=== PATIENT | female | born 1935 | race African-American/Black ===

== ENCOUNTER → 2016-09-20 | Outpatient (CLI) | payer MEDICARE ==
[~2016-09-20] MED LIST: ASPIRIN81 M2 PO; ASPIRINEC; BACLOFEN10 MG PO; FERRO-TIME325 MG PO; HCTZ; HYDROCHLOROTHIA25 MG PO; LOSARTAN POTASS50 MG PO; METFORMIN PO; METOPROLOL SUC100 MG PO; NAPROXEN; NITROLINGUAL; STOOL SOFTENER100 M1 PO; TOPROL XL; VITAMIN B650 M1 PO; XALATAN; [UNRECOGNIZED DRUG - OTHER]
--- NOTE | ~2016-09-20 | MY11 ---
[facility] A Service of [facility] RADIOLOGY TEXT RESULTS PATIENT: JEY LEO LOCATION: [facility] : 35 UNIT #: [id number] AGE: [address]: Michelle Kauffman MD SEX: F ORDER DR: [id number] [facility] [address] [place], [place] [address] [id number] O MR#: [id number] Acc #: [id number] NAME: JEY LEO : 1935 SEX: F STUDY DATE/TIME: 09/20/2016 10:52 UNIT: [facility] ROOM: STUDY DESCRIPTION: MY Mammogram Screening Dig [facility] Attending Physician: Michelle Kauffman M.D. Ordering Physician: Michelle Kauffman M.D. Primary Care Physician: Michelle Kauffman M.D. MEDICAL IMAGING REPORT This report is preliminary unless electronic signature is present EXAM Digital screening mammogram, 09/20/2016 HISTORY 81-year-old woman no risk elevation. Annual screening. COMPARISON Mammograms date to 04/19/2010 with most recent 09/19/2015. FINDINGS Digital imaging of each breast was completed utilizing screening protocol. Review includes FDA-approved CAD device. Breast parenchyma is fatty replaced. There is no interval occurring breast mass. There are no suspicious microcalcifications and no architectural deformity. IMPRESSION Negative mammogram. Annual screening is optional at this age. Patients over the age of 40 are entered into a reminder system with target due date for the next mammogram. A result letter will also be sent to the patient. BIRADS: 1 Negative Dictated by... Jaime Fabian M.D. THIS IS AN ELECTRONICALLY VERIFIED REPORT Jaime Fabian M.D. at 09/20/2016 2:17 PM NGOC/isaac TD: 09/20/2016 12:45 JOB #: [id number] [facility] A Service of [facility] RADIOLOGY TEXT RESULTS PATIENT: [facility] LEO [id number] : 35 UNIT #: [id number] AGE: [address]: Michelle Kauffman MD SEX: F ORDER DR: MEDICAL IMAGING REPORT Page 1 of 1 COPY
== END | disposition home or self-care (01) ==
LOC: CWCC 10:38
DX: Z12.31 Encounter for screening mammogram for malignant neoplasm of breast (principal)
CPT/HCPCS: G0202